=== PATIENT | male | born 1980 | race American Indian/Alaskan Native ===

== ENCOUNTER 2018-12-23 21:48 | Emergency (ER) | payer SELFPAY ==
--- NOTE | 2018-12-23 22:06 | Emergency Department Report ---
Blank Doc - Documentation Documentation: This is a 37-year-old male that presents with lower back pain with radiation to bilateral lower legs. Denies any injuries or urinary symptoms. This initial assessment/diagnostic orders/clinical plan/treatment(s) is/are subject to change based on patient's health status, clinical progression and re- assessment by fellow clinical providers in the ED. Further treatment and workup at subsequent clinical providers discretion. Patient/guardians urged not to elope from the ED as their condition may be serious if not clinically assessed and managed. Initial orders include: 1- Patient sent to [facility] for further evaluation and treatment
[2018-12-23 22:07] VITALS: BP 141/87
[2018-12-24] MEDS ORDERED: REGLAN PO ONE (02:57)
[2018-12-24] MEDS ORDERED: BENADRYL PO ONE (02:57)
[2018-12-24] MEDS ORDERED: FLEXERIL PO ONE (02:57)
[2018-12-24] MEDS ORDERED: FIORICET PO ONE (02:57)
--- NOTE | 2018-12-24 03:04 | Emergency Department Report ---
ED General Adult HPI - General Chief complaint: Back Pain/Injury Stated complaint: BACK AND HEAD PAIN Time Seen by Provider: 12/23/18 22:05 Source: patient Mode of arrival: Ambulatory Limitations: No Limitations - History of Present Illness Initial comments: patient is a 37-year-old male presents to the emergency room with complaints of lower back spasms that began today. He states he also has a left-sided headache that also began today. He has not taken anything at all to treat his symptoms. He denies any fall, injury, numbness, weakness, bowel or bladder incontinence, nausea, vomiting, fever, neck pain/stiffness, vision changes. He has a past medical history of chronic back pain and migraines. He denies any allergies to medications. - Related Data Previous Rx's Medication Instructions Recorded Last Taken Type Butalb/Acetaminophen/Caffeine 1 cap PO Q8HR PRN #10 cap 12/24/18 Unknown Rx [Fioricet 50-300-40 mg CAP] Cyclobenzaprine [Flexeril] 10 mg PO QHS PRN #10 tablet 12/24/18 Unknown Rx Naproxen [EC-Naproxen] 500 mg PO BID PRN #20 tablet. 12/24/18 Unknown Rx Allergies Allergy/AdvReac Type Severity Reaction Status Date / Time No Known Allergies Allergy Unverified 04/09/15 12:39 ED Review of Systems ROS: Stated complaint: BACK AND HEAD PAIN Other details as noted in HPI Comment: All other systems reviewed and negative ED Past Medical Hx - Past Medical History Previous Medical History?: Yes Hx Headaches / Migraines: Yes Additional medical history: Chronic Back Pain - Surgical History Past Surgical History?: Yes - Social History Smoking Status: Never Smoker Substance Use Type: None - Medications Home Medications: Home Medications Medication Instructions Recorded Confirmed Last Taken Type Butalb/Acetaminophen/Caffeine 1 cap PO Q8HR PRN #10 cap 12/24/18 Unknown Rx [Fioricet 50-300-40 mg CAP] Cyclobenzaprine [Flexeril] 10 mg PO QHS PRN #10 tablet 12/24/18 Unknown Rx Naproxen [EC-Naproxen] 500 mg PO BID PRN #20 tablet. 12/24/18 Unknown Rx ED Physical Exam - General Limitations: No Limitations General appearance: alert, in no apparent distress - Head Head exam: Present: atraumatic, normocephalic - Eye Eye exam: Present: normal appearance, PERRL, EOMI. Absent: nystagmus, periorbital swelling, periorbital tenderness - ENT ENT exam: Present: mucous membranes moist - Neck Neck exam: Present: normal inspection, full ROM. Absent: tenderness - Respiratory Respiratory exam: Present: normal lung sounds bilaterally. Absent: respiratory distress, wheezes, rales, rhonchi, stridor, accessory muscle use, decreased breath sounds, prolonged expiratory - Cardiovascular Cardiovascular Exam: Present: regular rate, normal rhythm, normal heart sounds. Absent: systolic murmur, diastolic murmur, rubs, gallop - Back Exam Back exam: Present: normal inspection, full ROM, paraspinal tenderness (bilateral lumbar paraspinal tenderness to palpation, no midline C-spine, T- spine, or L-spine tenderness, no step offs, no deformities). Absent: vertebral tenderness - Neurological Exam Neurological exam: Present: alert, oriented X3, CN II-XII intact, normal gait. Absent: motor sensory deficit - Psychiatric Psychiatric exam: Present: normal affect, normal mood - Skin Skin exam: Present: warm, dry, intact ED Course Vital Signs 12/23/18 22:04 Temperature 98.6 F Pulse Rate 83 Respiratory 18 Rate Blood Pressure 141/87 O2 Sat by Pulse 99 Oximetry ED Medical Decision Making - Medical Decision Making patient is a 37-year-old male presents to the emergency room with complaints of lower back spasms that began today. He states he also has a left-sided headache that also began today. He has not taken anything at all to treat his symptoms. He denies any fall, injury, numbness, weakness, bowel or bladder incontinence, nausea, vomiting, fever, neck pain/stiffness, vision changes. He has a past medical history of chronic back pain and migraines. He denies any allergies to medications. vitals are stable. on exam: bilateral lumbar paraspinal tenderness to palpation, no midline C-spine, T-spine, or L-spine tenderness, no step offs, no deformities, no focal neuro deficits on exam. pt given flexeril, fiorcet, reglan, and benadryl for symptomatic relief. given prescription for flexeril, naproxen, and fioricet. advised to please take medication as prescribed as needed. Do not drive or operate heavy machinery while taking muscle relaxer. May use ice, rest, heating pad, epsom salt bath. follow up with a primary care doctor in the next 2-3 days. Return to the emergency room for any new or worsening symptoms. - Differential Diagnosis muscle spasms, strain, WOOD, migraines, tension WOOD, cluster WOOD Critical care attestation.: If time is entered above; I have spent that time in minutes in the direct care of this critically ill patient, excluding procedure time. ED Disposition Clinical Impression: Low back pain Qualifiers: Chronicity: acute Back pain laterality: bilateral Sciatica presence: without sciatica Qualified Code(s): M54.5 - Low back pain Headache Qualifiers: Headache type: unspecified Headache chronicity pattern: acute headache Intractability: not intractable Qualified Code(s): R51 - Headache Disposition: DC-01 TO HOME OR SELFCARE Is pt being admited?: No Does the pt Need Aspirin: No Condition: Stable Instructions: Low Back Strain (ED), Acute Headache (ED) Additional Instructions: Please take medication as prescribed as needed. Do not drive or operate heavy machinery while taking muscle relaxer. May use ice, rest, heating pad, epsom salt bath. follow up with a primary care doctor in the next 2-3 days. Return to the emergency room for any new or worsening symptoms. Prescriptions: Cyclobenzaprine [Flexeril] 10 mg PO QHS PRN #10 tablet PRN Reason: Muscle Spasm Naproxen [EC-Naproxen] 500 mg PO BID PRN #20 tablet.dr PRN Reason: back pain Butalb/Acetaminophen/Caffeine [Fioricet 50-300-40 mg CAP] 1 cap PO Q8HR PRN #10 cap PRN Reason: headache Referrals: CHELY CHENEY MD [Primary Care Provider] - 2-3 Days [facility] [Outside] - 2-3 Days [facility] [Outside] - 2-3 Days Time of Disposition: 03:02 Print Language: FRISIAN
== END 2018-12-24 03:05 | disposition home or self-care (01) ==
LOC: ED 21:48
DX: M54.89 Other dorsalgia (principal); Z53.21 Procedure and treatment not carried out due to patient leaving prior to being seen by health care provider

== ENCOUNTER 2021-09-28 13:26 | Emergency (ER) | payer SELFPAY ==
[2021-09-28 13:47] VITALS: BP 127/81
== END 2021-09-28 13:55 | disposition left against medical advice (07) ==
LOC: ED 13:26
DX: M54.2 Cervicalgia (principal); Z53.21 Procedure and treatment not carried out due to patient leaving prior to being seen by health care provider